=== PATIENT | female | born 1975 | race Hispanic/Latino ===

== ENCOUNTER 2024-04-01 11:53 | Emergency (ER) | payer SELFPAY | END 2024-04-01 13:34 | disposition home or self-care (01) | LOC: ERS 11:53 | DX: S01.01XD Laceration without foreign body of scalp, subsequent encounter (principal); S91.001D Unspecified open wound, right ankle, subsequent encounter; V89.2XXD Person injured in unspecified motor-vehicle accident, traffic, subsequent encounter ==